=== PATIENT | male | born 1980 | race Caucasian/White ===

== ENCOUNTER 2022-11-24 08:02 | Outpatient (CLI) | payer BC, SELFPAY ==
[2022-11-24 21:50] LABS: Albumin* 5.2 g/dL (3.3-5.0)
[2022-11-24 22:04] LABS: Free T4 Free Thyroxine* 0.91 ng/dL (0.70-1.85)
[2022-11-26 17:54] LABS: TSH Receptor Antibody <0.80 IU/L (<=1.75)
[2022-11-26 22:46] LABS: Rapid Plasma Reagin (RPR) Non Reactive (Non Reactive)
[2022-11-27 06:15] LABS: Copper, Serum/Plasma 106.4 ug/dL (70.0-140.0); Zinc, Serum/Plasma 88.4 ug/dL (60.0-120.0)
[2022-11-28 20:12] LABS: Vitamin K1 1.03 nmol/L (0.22-4.88)
[2022-11-28 21:10] LABS: Vitamin A (Retinol) 0.75 mg/L (0.30-1.20)
== END 2022-11-24 08:03 | disposition home or self-care (01) ==
LOC: LKVREF 14:45
PROVIDERS: PCP Emergency Medicine; Visit Provider Emergency Medicine
DX: K50.00 Crohn's disease of small intestine without complications (principal); R53.83 Other fatigue; R63.4 Abnormal weight loss; Z86.39 Personal history of other endocrine, nutritional and metabolic disease; Z90.49 Acquired absence of other specified parts of digestive tract
CPT/HCPCS: 82040; 82525; 83520; 84255; 84439; 84443; 84446; 84590; 84597; 84630; 86592